=== PATIENT | male | born 1970 | race Caucasian/White ===

== ENCOUNTER 2021-08-09 08:29 | Outpatient (CLI) | payer BC, SELFPAY ==
[2021-08-09 08:43] VITALS: BP 140/86; PULSE 110; RESP 17; TEMP 36.8; O2SAT 98; BMI 34.7
[2021-08-09 10:22] VITALS: BP 142/90; PULSE 95; RESP 17; TEMP 36.1; O2SAT 97
[2021-08-09 11:13] VITALS: BP 142/90; PULSE 94; RESP 17; TEMP 36.1; O2SAT 97
[2021-08-09 11:16] VITALS: BP 140/85; PULSE 95; RESP 17; TEMP 36.2; O2SAT 97
== END 2021-08-09 08:30 | disposition home or self-care (01) ==
LOC: OPS 08:31
PROVIDERS: PCP Nurse Practitioner Family; Visit Provider Nurse Practitioner Family
DX: U07.1 COVID-19 (principal)
CPT/HCPCS: 96365